=== PATIENT | female | born 1960 | race Caucasian/White ===

== ENCOUNTER → 2018-09-01 14:50 | Outpatient (CLI) | payer OTHER, SELFPAY ==
--- NOTE | 2018-09-01 14:55 | DI.RAD.S_ITS ---
PROCEDURE: XR CERVICAL SPINE 2V OR 3V INDICATIONS: NECK PAIN,LOW BACK PAIN TECHNIQUE: 5 view(s) of the cervical spine were acquired. COMPARISON: None. FINDINGS: Bones: No fractures or dislocations to the T1 level. The lateral masses of C1 appear intact on the odontoid view. No suspicious bony lesions. Loss of lordosis which could be related to muscle spasm, rigidity or simply positional. Multilevel disc degeneration, moderate to severe to C5-C6 and C6-C7 levels. Moderate C3-C4, C4-C5 and C5-C6 neural foraminal narrowing. Mild multilevel uncovertebral hypertrophy. Soft tissues: No prevertebral soft tissue swelling. IMPRESSION: Loss of lordosis and multilevel degenerative change. Dictated by: Niall Pitts [facility] Interpreted: Albaro Be MD on 09/01/2018 at 15:29 Approved by: Albaro Be M.D. on 09/01/2018 at 17:15
--- NOTE | 2018-09-01 14:55 | DI.RAD.S_ITS ---
PROCEDURE: XR LUMBAR SPINE MIN 4V INDICATIONS: NECK PAIN,LOW BACK PAIN TECHNIQUE: 5 views of the lumbar spine acquired. COMPARISON: None. FINDINGS: Bones: 5 nonrib-bearing vertebrae are present. There is normal bony alignment. No vertebral body compression fractures. No suspicious bony lesions. Mild multilevel disc degeneration and L4-L5/L5-S1 facet joint arthropathy. Soft tissues: Overlying bowel gas pattern is normal. No suspicious soft tissue calcifications. Flexion/extension: There is normal range of motion, with preserved normal alignment. IMPRESSION: 1. Mild degenerative disc and facet disease. Dictated by: Niall Pitts [facility] Interpreted: Albaro Be MD on 09/01/2018 at 15:34 Approved by: Albaro Be M.D. on 09/01/2018 at 17:15
== END ==
PROVIDERS: PCP Family Medicine; Visit Provider Family Medicine
DX: M54.2 Cervicalgia (principal); M54.5 Low back pain; M51.36 Other intervertebral disc degeneration, lumbar region; M51.37 Other intervertebral disc degeneration, lumbosacral region; M47.816 Spondylosis without myelopathy or radiculopathy, lumbar region; M47.817 Spondylosis without myelopathy or radiculopathy, lumbosacral region; M47.812 Spondylosis without myelopathy or radiculopathy, cervical region
CPT/HCPCS: 72040; 72100

== ENCOUNTER → 2019-05-11 07:47 | Outpatient (CLI) | payer OTHER, SELFPAY ==
--- NOTE | 2019-05-11 | DI.MG.S_ITS ---
BILATERAL DIGITAL SCREENING MAMMOGRAM 3D/2D WITH CAD: 05/11/2019 CLINICAL: Routine screening. Family history of breast cancer. Comparison is made to exams dated: 10/23/2016 mammogram, 09/17/2015 mammogram, and 08/16/2014 mammogram - [facility]. The tissue of both breasts is heterogeneously dense. This may lower the sensitivity of mammography. Current study was also evaluated with a Computer Aided Detection (CAD) system. No significant masses, calcifications, or other findings are seen in either breast. There has been no significant interval change. IMPRESSION: NEGATIVE There is no mammographic evidence of malignancy. A 1 year screening mammogram is recommended. This exam was interpreted at Station ID: [id number]. NOTE: For mammograms, a report in lay terms will be sent to the patient. Approximately 15% of breast malignancies will not be visualized mammographically. In the management of a palpable breast mass, a negative mammogram must not discourage biopsy of a clinically suspicious lesion. Electronically Signed By: Eric vega/yeni:05/11/2019 20:40:54 letter sent: Normal Exam ACR BI-RADS Category 1: Negative 3341F
== END ==
PROVIDERS: Family Provider Family Medicine; PCP Family Medicine; Visit Provider Family Medicine
DX: Z12.31 Encounter for screening mammogram for malignant neoplasm of breast (principal); Z80.3 Family history of malignant neoplasm of breast
CPT/HCPCS: 77063; 77067

== ENCOUNTER 2019-07-29 15:53 | Emergency (ER) | payer OTHER, SELFPAY ==
[2019-07-29] VITALS (14 sets, daily range): BP systolic 108–155; BP diastolic 67–89; PULSE 62–84; RESP 12–20; O2SAT 97–100; BMI 25.8
--- NOTE | 2019-07-29 16:05 | DI.RAD.S_ITS ---
PROCEDURE: XR WRIST LT MIN 3V INDICATIONS: Fell off horse TECHNIQUE: 3 views of the wrist were acquired. COMPARISON: None. FINDINGS: Bones: Moderately displaced comminuted fractures of the distal radius and ulna are present. The distal radial fragment is displaced anteriorly by roughly 3 cm. There is articular surface extension to the radiocarpal joint. Scaphoid view: Not requested Soft tissues: No suspicious soft tissue calcifications. IMPRESSION: Distal radial and ulnar fractures. Dictated by: Katerine Gonzalez M.D. on 07/29/2019 at 16:27 Approved by: Katerine Gonzalez M.D. on 07/29/2019 at 16:29
--- NOTE | 2019-07-29 16:22 | ED_ITS ---
HPI - Extremity Injury (Upper) General Chief Complaint: Extremity Injury, Upper Stated Complaint: Fell off her horse Time Seen by Provider: 07/29/19 16:22 Source: patient Mode of arrival: Ambulatory Limitations: no limitations History of Present Illness HPI narrative: Patient is a 59-year-old female who presents with left wrist pain and deformity after falling off a horse. She denies hitting her head or loss of consciousness. No other extremity pain or pelvic pain. She is ambulatory afterwards. No nausea or vomiting. No numbness or tingling in extremities. MD complaint: injury to: left and wrist Related Data Home Medications Medication Instructions Recorded Confirmed calcium carbonate-vitamin D3 1 tab PO DAILY #0 07/02/12 07/29/19 [Oyster Shell Calcium-Vit D3] montelukast [Singulair] 10 mg PO DAILY #0 07/02/12 07/29/19 multivitamin 1 cap PO DAILY #0 07/02/12 07/29/19 lysine [L-Lysine] 500 mg PO DAILY #0 07/19/12 07/29/19 Biestro Cream 80/20 1 applic VAGINAL DAILY 07/29/19 07/29/19 albuterol sulfate [Ventolin HFA] 1 puff INHALATION PRN PRN 07/29/19 07/29/19 budesonide-formoterol [Symbicort] 1 inh INHALATION BID 07/29/19 07/29/19 lorazepam 0.5 mg PO QID PRN 07/29/19 07/29/19 progesterone 80 mg PO DAILY 07/29/19 07/29/19 sertraline 100 mg PO DAILY 07/29/19 07/29/19 trazodone 50 mg PO BEDTIME PRN 07/29/19 07/29/19 Allergies Allergy/AdvReac Type Severity Reaction Status Date / Time aspirin Allergy Unknown FACE/TONGUE Verified 07/29/19 16:42 SWELLING NSAIDS ARE OK Iodine and Iodide Containing Allergy Unknown Hives, Verified 07/29/19 16:42 Produc Itching Review of Systems Review of Systems Narrative: GENERAL: Denies chills, fatigue, malaise, fever, sweats, travel HEENT: Denies sinus pain, ear pain, sore throat, difficulty swallowing, neck pain RESPIRATORY: Denies dyspnea, cough, wheezing, hemoptysis, sputum. CARDIOVASCULAR: Denies chest pain, palpitations, orthopnea, edema GASTROINTESTINAL: Denies nausea, vomiting, abdominal pain, diarrhea, constipation, melena. : Denies dysuria, frequency, incontinence, hematuria, urinary retention, flank pain. MUSCULOSKELETAL: See HPI SKIN: No rash, no erythema, no pruritus NEUROLOGIC: Denies weakness, dizziness, headache, numbness, change in speech, confusion PSYCHIATRIC: No concerning psychosocial issues. 12 point review of systems is negative except for those stated above and HPI Patient History Medical History Asthma (Acute) Social History Smoking Status: Never smoker alcohol intake frequency: a few times a week Substance Use Type: does not use Exam Initial Vital Signs Initial Vital Signs: Vital Signs Pulse Rate 84 07/29/19 15:57 Respiratory Rate 18 07/29/19 15:57 Blood Pressure 144/88 H 07/29/19 15:57 Pulse Oximetry 100 07/29/19 15:57 GENERAL: Well-appearing, well-nourished and in no acute distress. HEENT: Head atraumatic, no abrasions contusions or lacerations EOMI, pupils reactive, face symmetric, neck no vertebral tenderness or step-off CARDIOVASCULAR: Regular rate and rhythm without murmurs, rubs or gallops. RESPIRATORY: Breath sounds equal bilaterally, no wheezes rales or rhonchi. ABDOMEN: Soft, nontender. Normoactive bowel sounds all 4 quadrants. No guarding or rebound. EXTREMITIES: Normal range of motion, no clubbing or edema. Neurovascularly intact Right upper extremity no clavicle or shoulder deformity no wrist deformity within normal limits Left upper extremity no shoulder or clavicle step-off. Elbow intact nonpainful obvious wrist deformity strong distal radial pulse able to move fingers NEUROLOGICAL: Alert and oriented x4.Normal gait and speech. Cranial nerves II through XII grossly intact. SKIN: Warm, dry, no laceration, no petechiae, no rashes or lesions. Procedures Orthopedic Fracture Reduction Fracture #1: Time Out Performed: Yes Side: left Fracture Reduction Location: radius and ulna Analgesia: procedural sedation Technique: direct manipulation Post Reduction X-rays Demonstrate: acceptable reduction Post-reduction neuro exam: intact Post-reduction vascular exam: intact Splint Applied: Yes Patient Tolerated Procedure: Well Orthopedic Splinting/Casting Injury #1: Side: left Upper Extremity Injury Location: wrist Upper Extremity Immobilizer: sugar tong splint Post splinting neuro exam: intact Post splinting vascular exam: intact Placed by: Provider Procedural Sedation Patient Age: Patient is 5yrs or older Consent signed: Yes Time out performed: Yes Indication: fracture/dislocation reduction ASA Class: I Mallampati Airway Classification: Class I Preparation: registered nurse cardiac telemetry applied, pulse oximeter and capnometry used IV Propofol dose (mg): 75 Intraservice time/total sedation time (min): 15 ED Sedation Level: Moderate (Concious) Patient Tolerated Procedure: Well Complications: none Course Orders Ordered: ED Orders 07/29/19 16:05 XR wrist LT min 3V Stat 07/29/19 17:49 XR wrist LT 2V Stat Discontinued Medications Hydromorphone HCl (Dilaudid) 0.5 mg IV NOW ONE Stop: 07/29/19 16:39 Last Admin: 07/29/19 16:56 Dose: 0.5 mg Documented by: [facility] Propofol (Diprivan) 75 mg 1 mg/kg (75 mg) IV NOW ONE Stop: 07/29/19 17:36 Last Admin: 07/29/19 17:43 Dose: 75 mg Documented by: [facility] Consultations Consultation #1: Orthopedics Dr. Mack updated on patient's symptoms and x- rays. She will contact patient they will likely need surgery next week. Time: 18:21 Vital Signs Vital signs: Vital Signs - 8 hr 07/29/19 15:57 07/29/19 17:22 07/29/19 17:23 Pulse Rate 84 70 73 Respiratory Rate 18 16 12 Blood Pressure 144/88 H Blood Pressure [Right Arm] 155/89 H 155/89 H Pulse Oximetry 100 97 99 07/29/19 17:30 07/29/19 17:35 07/29/19 17:40 Pulse Rate 72 72 73 Respiratory Rate 14 18 18 Blood Pressure Blood Pressure [Right Arm] 146/85 H 143/82 H 145/82 H Pulse Oximetry 97 98 99 07/29/19 17:45 07/29/19 17:50 07/29/19 17:55 Pulse Rate 75 70 79 Respiratory Rate 18 16 12 Blood Pressure Blood Pressure [Right Arm] 150/77 H 137/81 127/76 Pulse Oximetry 99 97 100 07/29/19 18:00 07/29/19 18:05 07/29/19 18:10 Pulse Rate 74 73 62 Respiratory Rate 14 16 20 Blood Pressure Blood Pressure [Right Arm] 132/76 154/83 H 108/80 Pulse Oximetry 98 99 98 07/29/19 18:30 07/29/19 19:01 Pulse Rate 64 70 Respiratory Rate 16 18 Blood Pressure Blood Pressure [Right Arm] 139/67 145/85 H Pulse Oximetry 97 99 MDM - Extremity Injury (Upper) Lab Data Labs: Point of Care Testing Test Results Not applicable Imaging Data Left wrist 1. : Radiologist's impression: PROCEDURE: XR WRIST LT MIN 3V INDICATIONS: Fell off horse TECHNIQUE: 3 views of the wrist were acquired. COMPARISON: None. FINDINGS: Bones: Moderately displaced comminuted fractures of the distal radius and ulna are present. The distal radial fragment is displaced anteriorly by roughly 3 cm. There is articular surface extension to the radiocarpal joint. Scaphoid view: Not requested Soft tissues: No suspicious soft tissue calcifications. IMPRESSION: Distal radial and ulnar fractures. Dictated by: Katerine Gonzalez M.D. on 07/29/2019 at 16:27 Approved by: Katerine Gonzalez M.D. on 07/29/2019 at 16:29 Left wrist 2. : Radiologist's impression: PROCEDURE: XR WRIST LT 2V INDICATIONS: reduction TECHNIQUE: A 2 views of the wrist were acquired. COMPARISON: [facility], , XR WRIST LT MIN 3V, 07/29/2019, 16:02. FINDINGS: Bones: No previously unidentified fractures or dislocations. There has been significant improvement in the degree of malalignment associated with the complex comminuted intra-articular distal radius and ulna fractures, with fine bone detail partially obscured by overlying cast/splint material. No suspicious bony lesions. Scaphoid view: Not obtained of the scaphoid visualized has appeared free of trauma. Soft tissues: No suspicious soft tissue calcifications. IMPRESSION: Complex comminuted distal radius and ulna fractures, with the radius fracture intra-articular. Partial reduction of fracture or malalignment is successfully been performed, fine bone detail partially obscures portions of the fractures on the most recent study. Dictated by: Deshawn Brian M.D. on 07/29/2019 at 18:32 Approved by: Deshawn Brian M.D. on 07/29/2019 at 18:3 Discharge Plan Departure Patient Disposition: Home Clinical Impression: Fracture of left wrist Qualifiers: Encounter type: initial encounter Fracture type: closed Qualified Code(s): S62.102A - Fracture of unspecified carpal bone, left wrist, initial encounter for closed fracture Discharge Date/Time: 07/29/19 19:01 Instructions: DI for Wrist Fracture Activity Restrictions/Additional Instructions: *You have been diagnosed with left wrist fracture *What to do: Keep arm and splint at all times, you will need surgery. Expect to give him orthopedic office on Thursday morning possible surgery on Thursday *Continue to take medications as directed *Follow up with your primary care provider in 2-3 days, orthopedic Dr. Chang *Return to ER if you should have numbness tingling weakness inability to move fingers significant pain while moving fingers or any new, worsening or concerning symptoms Prescriptions: No Action montelukast [Singulair] 10 MG tablet 10 mg PO DAILY Qty: 0 RF: 0 multivitamin Capsule 1 cap PO DAILY Qty: 0 RF: 0 calcium carbonate-vitamin D3 [Oyster Shell Calcium-Vit D3] 1,250 MG/200 IU t ablet 1 tab PO DAILY Qty: 0 RF: 0 lysine [L-Lysine] 500 mg Tablet 500 mg PO DAILY Qty: 0 RF: 0 trazodone 50 mg tablet 50 mg PO BEDTIME PRN (Reason: Sleep) RF: 0 sertraline 100 mg tablet 100 mg PO DAILY RF: 0 albuterol sulfate [Ventolin HFA] 90 mcg/actuation HFA aerosol inhaler 1 puff INHALATION PRN PRN (Reason: Shortness Of Breath) RF: 0 Symbicort 160-4.5 mcg/actuation HFA aerosol inhaler 1 inh INHALATION BID RF: 0 lorazepam 0.5 mg Tablet 0.5 mg PO QID PRN (Reason: Anxiety) RF: 0 Biestro Cream 80/20 1 applic vaginal DAILY RF: 0 progesterone 80 mg capsule 80 mg PO DAILY RF: 0 Referrals: Karoline Chang MD [Physician] - Hilario Garber MD [Primary Care Provider] -
[2019-07-29] MEDS: HYDROMORPHONE 0.5 MG INJ IV (16:56)
[2019-07-29] MEDS: PROPOFOL 200 MG/20 ML VIAL 75 MG IV (17:43)
--- NOTE | 2019-07-29 17:49 | DI.RAD.S_ITS ---
PROCEDURE: XR WRIST LT 2V INDICATIONS: reduction TECHNIQUE: A 2 views of the wrist were acquired. COMPARISON: [facility], CR, XR WRIST LT MIN 3V, 07/29/2019, 16:02. FINDINGS: Bones: No previously unidentified fractures or dislocations. There has been significant improvement in the degree of malalignment associated with the complex comminuted intra-articular distal radius and ulna fractures, with fine bone detail partially obscured by overlying cast/splint material. No suspicious bony lesions. Scaphoid view: Not obtained of the scaphoid visualized has appeared free of trauma. Soft tissues: No suspicious soft tissue calcifications. IMPRESSION: Complex comminuted distal radius and ulna fractures, with the radius fracture intra-articular. Partial reduction of fracture or malalignment is successfully been performed, fine bone detail partially obscures portions of the fractures on the most recent study. Dictated by: Deshawn Brian M.D. on 07/29/2019 at 18:32 Approved by: Deshawn Brian M.D. on 07/29/2019 at 18:34
--- NOTE | 2019-07-29 18:08 | PC.NURSE ---
reports no numbness in fingers. pain is getting better. vss.
== END 2019-07-29 19:01 | disposition home or self-care (01) ==
PROVIDERS: Emergency Provider Emergency Medicine; Family Provider Family Medicine; PCP Family Medicine
DX: S62.102A Fracture of unspecified carpal bone, left wrist, initial encounter for closed fracture (principal); V80.010A Animal-rider injured by fall from or being thrown from horse in noncollision accident, initial encounter
CPT/HCPCS: 25565; 29105; 29240; 73100; 73110; 96374; 99152; 99285; J1170; J2704

== ENCOUNTER 2019-08-02 12:39 | Day surgery (SDC) | payer OTHER, SELFPAY ==
[2019-08-02 13:59] VITALS: BP 145/72; PULSE 75; RESP 16; TEMP 36.6; O2SAT 98; BMI 27.1
[2019-08-02] MEDS: LACTATED RINGERS 1,000 ML 42 ML IV (14:07)
[2019-08-02] MEDS: OXYCODONE/ACETAMINOPHEN 5/325 TABLET 1 TAB PO (14:17)
--- NOTE | 2019-08-02 16:17 | SUR.PREOP ---
pt to be rescheduled for Thursday am with Dr Chang. IV D/C'D PT HOME WITH .
== END 2019-08-02 12:40 | disposition home or self-care (01) ==
PROVIDERS: Family Provider Family Medicine; PCP Family Medicine; Visit Provider Orthopaedic Surgery Foot and Ankle Surgery
DX: S52.502A Unspecified fracture of the lower end of left radius, initial encounter for closed fracture (principal); Z53.9 Procedure and treatment not carried out, unspecified reason
CPT/HCPCS: 25575

== ENCOUNTER → 2022-02-04 08:08 | Outpatient (CLI) | payer OTHER, SELFPAY ==
--- NOTE | 2022-02-04 | DI.MG.S_ITS ---
BILATERAL DIGITAL SCREENING MAMMOGRAM 3D/2D WITH CAD: 02/04/2022 CLINICAL: Routine screening. Comparison is made to exams dated: 05/11/2019 mammogram, 10/23/2016 mammogram, and 09/17/2015 mammogram - [facility]. The tissue of both breasts is heterogeneously dense. This may lower the sensitivity of mammography. Current study was also evaluated with a Computer Aided Detection (CAD) system. No significant masses, calcifications, or other findings are seen in either breast. There has been no significant interval change. IMPRESSION: NEGATIVE There is no mammographic evidence of malignancy. A 1 year screening mammogram is recommended. This exam was interpreted at Station ID: [id number]. NOTE: For mammograms, a report in lay terms will be sent to the patient. Approximately 15% of breast malignancies will not be visualized mammographically. In the management of a palpable breast mass, a negative mammogram must not discourage biopsy of a clinically suspicious lesion. Electronically Signed By: Avi buck/yeni:02/04/2022 09:25:13 letter sent: Normal Exam ACR BI-RADS Category 1: Negative [id number]
== END ==
PROVIDERS: Family Provider Family Medicine; PCP Nurse Practitioner Family; Referring Provider Nurse Practitioner Family; Visit Provider Nurse Practitioner Family
DX: Z12.31 Encounter for screening mammogram for malignant neoplasm of breast (principal)
CPT/HCPCS: 77063; 77067

== ENCOUNTER 2023-01-01 09:19 | Emergency (ER) | payer OTHER, SELFPAY ==
[2023-01-01] VITALS (8 sets, daily range): BP systolic 149–195; BP diastolic 83–104; PULSE 61–80; RESP 6–16; TEMP 36.9; O2SAT 91–100; BMI 25.0
--- NOTE | 2023-01-01 09:22 | DI.RAD.S_ITS ---
PROCEDURE: XR KNEE LT 3V INDICATIONS: trauma with left knee pain TECHNIQUE: 3 views of the knee were acquired. COMPARISON: None. FINDINGS: Bones: No fractures or dislocations. No suspicious bony lesions. Soft tissues: No joint effusion. No suspicious soft tissue calcifications. IMPRESSION: No visualized acute fracture or dislocation. However, if clinical concern and/or pain persist, short interval imaging followup in 7-10 days is recommended, as occult injury cannot be definitively excluded. Dictated by: Alicia Trevino M.D. on 01/01/2023 at 10:01 Approved by: Alicia Trevino M.D. on 01/01/2023 at 10:03
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
--- NOTE | 2023-01-01 09:23 | DI.RAD.S_ITS ---
PROCEDURE: XR CHEST 1V INDICATIONS: trauma TECHNIQUE: One view of the chest was acquired. COMPARISON: None. FINDINGS: Surgical changes and devices: None. Lungs and pleura: Lungs are clear. No pleural effusions or pneumothorax. Mediastinum: Mediastinal contours appear normal. Heart size is normal. Bones and chest wall: No suspicious bony lesions. Overlying soft tissues appear unremarkable. IMPRESSION: No acute pulmonary process. Dictated by: Alicia Trevino M.D. on 01/01/2023 at 10:01 Approved by: Alicia Trevino M.D. on 01/01/2023 at 10:01
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
[2023-01-01 10:09] LABS: Add Manual Diff / Slide Review NO; Basophils Absolute Auto 0 /uL (0-100); Eosinophils Absolute Auto 200 /uL (0-450); Eosinophils Percent Auto 3.5 % (2-4); Hematocrit 41.6 % (36-46); Hemoglobin 14.2 g/dL (12.0-16.0); Lymphocytes Absolute Auto 1700 /uL (1100-4500); Lymphocytes Percent Auto 37.9 % (25-40); Mean Corpuscular HGB Conc 34.2 % (30-36); Mean Corpuscular Hemoglobin 30.3 PG (26-34); Mean Corpuscular Volume 88.6 fL (80-100); Monocytes Absolute Auto 400 /uL (0-900); Monocytes Percent Auto 8.9 % (3-14); Neutrophils Absolute Auto 2200 /uL (1500-7000); Neutrophils Percent Auto 48.7 % (50-75); Platelet Count 211 X10^3/uL (150-400); Red Cell Distribution Width 13.5 % (11.6-14.8); White Blood Cell Count 4.6 X10^3/uL (4.5-11.0)
[2023-01-01 10:46] LABS: Blood Urea Nitrogen 14 mg/dL (7-17)
[2023-01-01 10:51] LABS: HEMOLYSIS < 15 (0-50)
[2023-01-01] MEDS: ACETAMINOPHEN 325 MG TABLET 650 MG PO (11:04)
[2023-01-01 11:09] LABS: Alanine Aminotransferase 21 IU/L (<35); Albumin 4.1 g/dL (3.5-5.0); Albumin Globulin Ratio 1.5 (1.0-2.8); Alkaline Phosphatase 102 U/L (38-126); Aspartate Aminotransferase 25 IU/L (14-36); BUN Creatinine Ratio 18.2 (6-22); Bilirubin Total 0.5 mg/dL (0.2-1.3); Calcium 9.1 mg/dL (8.4-10.2); Carbon Dioxide 25 mmol/L (22-32); Chloride 105 mmol/L (98-107); Creatine Kinase 69 U/L (30-135); Estimated Glomerular Filt Rate > 60 mL/min (>60); Globulin 2.7 g/dL (1.7-4.1); Glucose 109 mg/dL (80-110); Lipase 164 U/L (23-300); Magnesium 1.9 mg/dL (1.6-2.3); Potassium 3.6 mmol/L (3.4-5.1); Sodium 138 mmol/L (137-145); Total Protein 6.8 g/dL (6.3-8.2)
[2023-01-01 11:20] LABS: Troponin I < 0.012 ng/mL (0.01-0.034)
== END 2023-01-01 11:36 | disposition home or self-care (01) ==
PROVIDERS: Emergency Provider Emergency Medicine; Family Provider Family Medicine; PCP Nurse Practitioner Family
DX: S00.83XA Contusion of other part of head, initial encounter (principal); M54.2 Cervicalgia; R07.9 Chest pain, unspecified; S80.212A Abrasion, left knee, initial encounter; M54.89 Other dorsalgia; V89.2XXA Person injured in unspecified motor-vehicle accident, traffic, initial encounter
CPT/HCPCS: 70450; 71045; 72125; 72170; 73562; 80053; 82550; 83690; 83735; 84484; 85025; 99283; 99284

== ENCOUNTER 2023-01-07 18:19 | Emergency (ER) | payer OTHER, SELFPAY ==
[2023-01-07 18:26] VITALS: BP 109/72; PULSE 81; RESP 16; TEMP 36.1; O2SAT 99; BMI 25.0
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
--- NOTE | 2023-01-07 18:36 | DI.RAD.S_ITS ---
PROCEDURE: XR CHEST 1V INDICATIONS: chest pain TECHNIQUE: One view of the chest was acquired. COMPARISON: [facility], CR, XR CHEST 1V, 01/01/2023, 9:24. FINDINGS: Surgical changes and devices: None. Lungs and pleura: Lungs are clear. No pleural effusions or pneumothorax. Mediastinum: Mediastinal contours appear normal. Heart size is normal. Bones and chest wall: No suspicious bony lesions. Overlying soft tissues appear unremarkable. IMPRESSION: No acute process. Dictated by: Katerine Gonzalez M.D. on 01/07/2023 at 19:10 Approved by: Katerine Gonzalez M.D. on 01/07/2023 at 19:10
[2023-01-07 19:36] LABS: Add Manual Diff / Slide Review NO; Basophils Absolute Auto 100 /uL (0-100); Basophils Percent Auto 0.4 % (0-2); Eosinophils Absolute Auto 100 /uL (0-450); Eosinophils Percent Auto 0.9 % (2-4); Hematocrit 35.5 % (36-46); Hemoglobin 12.1 g/dL (12.0-16.0); Lymphocytes Absolute Auto 1900 /uL (1100-4500); Lymphocytes Percent Auto 16.3 % (25-40); Mean Corpuscular HGB Conc 34.2 % (30-36); Mean Corpuscular Volume 87.9 fL (80-100); Monocytes Absolute Auto 500 /uL (0-900); Monocytes Percent Auto 4.6 % (3-14); Neutrophils Absolute Auto 9000 /uL (1500-7000); Neutrophils Percent Auto 77.8 % (50-75); Platelet Count 212 X10^3/uL (150-400); Red Blood Cell Count 4.04 X10^6/uL (4.0-5.2); Red Cell Distribution Width 13.2 % (11.6-14.8); White Blood Cell Count 11.6 X10^3/uL (4.5-11.0)
[2023-01-07 19:37] LABS: Prothrombin Time 11.5 SECONDS (10.1-12.7)
[2023-01-07 19:40] LABS: PTT Partial Thromboplastin Tim 27 SECONDS (26-36)
[2023-01-07 19:42] LABS: Alanine Aminotransferase 20 IU/L (<35); Albumin 3.6 g/dL (3.5-5.0); Albumin Globulin Ratio 1.3 (1.0-2.8); Alkaline Phosphatase 102 U/L (38-126); Aspartate Aminotransferase 21 IU/L (14-36); Bilirubin Total 0.3 mg/dL (0.2-1.3); Blood Urea Nitrogen 22 mg/dL (7-17); Calcium 8.6 mg/dL (8.4-10.2); Carbon Dioxide 24 mmol/L (22-32); Chloride 108 mmol/L (98-107); Creatine Kinase 64 U/L (30-135); Estimated Glomerular Filt Rate > 60 mL/min (>60); Globulin 2.7 g/dL (1.7-4.1); Glucose 153 mg/dL (80-110); HEMOLYSIS < 15 (0-50); Lipase 91 U/L (23-300); Potassium 3.8 mmol/L (3.4-5.1); Sodium 138 mmol/L (137-145); Total Protein 6.3 g/dL (6.3-8.2)
[2023-01-07 19:53] LABS: Troponin I < 0.012 ng/mL (0.01-0.034)
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
[2023-01-07] MEDS: methylPREDNISolone 125 MG/2 ML VIAL IV (22:20)
[2023-01-07] MEDS: diphenhydrAMINE 50 MG/ML VIAL IV (22:20)
[2023-01-07 22:56] VITALS: PULSE 84; O2SAT 97
[2023-01-07 23:00] VITALS: BP 148/67; PULSE 81; RESP 17; O2SAT 97
[2023-01-07] MEDS: MORPHINE 4 MG/ML INJ IV (23:03)
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
[2023-01-07 23:30] VITALS: PULSE 82; RESP 16; O2SAT 95
[2023-01-07 23:35] LABS: Troponin I < 0.012 ng/mL (0.01-0.034)
[2023-01-07 23:49] VITALS: BP 110/63; PULSE 81; RESP 17; O2SAT 94
[2023-01-08] VITALS: BP 106/58; PULSE 79; RESP 17; O2SAT 93
[2023-01-08 00:30] VITALS: BP 120/67; PULSE 85; RESP 18; O2SAT 95
[2023-01-08 01:00] VITALS: BP 125/70; PULSE 87; RESP 19; O2SAT 96
[2023-01-08] MEDS: MORPHINE 4 MG/ML INJ IV (01:20)
--- NOTE | 2023-01-08 01:28 | PC.NURSE ---
[facility] transfer form faxed. Report given to EMS. Pt transferred with all belongings. Transfer packet provided to EMS.
[2023-01-08 01:42] LABS: COVID19 -Nasal RAPID Negative (Negative)
== END 2023-01-08 01:31 | disposition short-term general hospital (02) ==
PROVIDERS: Emergency Provider Emergency Medicine; Family Provider Family Medicine; PCP Nurse Practitioner Family
DX: S36.032A Major laceration of spleen, initial encounter (principal); S37.812A Contusion of adrenal gland, initial encounter; K66.1 Hemoperitoneum; S09.90XA Unspecified injury of head, initial encounter; R51.9 Headache, unspecified; R55 Syncope and collapse; R07.9 Chest pain, unspecified; V89.2XXA Person injured in unspecified motor-vehicle accident, traffic, initial encounter
CPT/HCPCS: 36415; 70450; 71045; 71260; 74177; 80053; 82550; 83690; 83735; 84484; 85025; 85610; 85730; 86850; 86900; 86901; 87635; 96374; 96375; 96376; 99284; 99291; C9803; J1200; J2270; J2930; Q9967

== ENCOUNTER → 2023-08-06 10:30 | Outpatient (CLI) | payer OTHER, SELFPAY ==
--- NOTE | 2023-08-06 | DI.MG.S_ITS ---
BILATERAL DIGITAL SCREENING MAMMOGRAM 3D/2D WITH CAD: 08/06/2023 CLINICAL: Routine screening. Family history of breast cancer. Comparison is made to exams dated: 02/04/2022 mammogram, 05/11/2019 mammogram, and 10/23/2016 mammogram - [facility]. Both breasts are heterogeneously dense, which may obscure small masses (category c / 51-75% glandular tissue). Current study was also evaluated with a Computer Aided Detection (CAD) system. No significant masses, calcifications, or other findings are seen in either breast. There has been no significant interval change. IMPRESSION: NEGATIVE There is no mammographic evidence of malignancy. A 1 year screening mammogram is recommended. Based on Tyrer-Cuzick model (a risk assessment model), the patient's lifetime risk is 23.3% and her 10 year risk is 11.3%. If a patient has an elevated risk, a more comprehensive evaluation should be considered and/or a referral to a genetic counselor. The [place] [employer], [place] [employer], and NCCN Guidelines advise the consideration of Breast MRI as an adjunct to screening mammography in patients whose Lifetime risk to develop breast cancer is 20% or higher. This exam was interpreted at Station ID: [id number]. NOTE: For mammograms, a report in lay terms will be sent to the patient. Approximately 15% of breast malignancies will not be visualized mammographically. In the management of a palpable breast mass, a negative mammogram must not discourage biopsy of a clinically suspicious lesion. Electronically Signed By: Tomás nye/yeni:08/06/2023 11:21:30 letter sent: Normal Exam ACR BI-RADS Category 1: Negative 3341F
== END ==
PROVIDERS: Family Provider Family Medicine; PCP Nurse Practitioner Family; Referring Provider Nurse Practitioner Family; Visit Provider Nurse Practitioner Family
DX: Z12.31 Encounter for screening mammogram for malignant neoplasm of breast (principal); Z80.3 Family history of malignant neoplasm of breast
CPT/HCPCS: 77063; 77067